=== PATIENT | female | born 1950 | race African-American/Black ===

== ENCOUNTER 2019-08-14 17:42 | Emergency (ER) | payer MEDICARE, OTHER ==
[~2019-08-14] VITALS: Ht 160 cm; Wt 56.2 kg
[2019-08-14 18:33] LABS: BILIRUBIN,URINE NEGATIVE (NEG); CLARITY,URINE CLEAR; COLOR,URINE ORANGE; NITRITE,URINE POSITIVE (NEG); PROTEIN,URINE NEGATIVE (NEG-TRACE)
--- NOTE | 2019-08-14 18:34 | PHYS DOC ---
Past Medical History Past Medical History: Arthritis, High Cholesterol, Hypertension Past Surgical History: Other Additional Past Surgical Histo: breast bx, rotator cuff Alcohol Use: None Drug Use: None Adult General Chief Complaint Chief Complaint: LOWER BACK PAIN OR INJURY [facility] HPI Patient is a 69 year old female presented to ER today for evaluation of left low back pain, left hip pain after she fell 3 days ago on a step. She denies any head or neck injury, no bowel or bladder incontinence. She denies any weakness or numbness in her lower extremity. She denies any urinary symptom. All other ROS is negative unless otherwise noted in HPI Review of Systems Review of Systems See above Allergies Allergies Allergies Coded Allergies Type Severity Reaction Last Updated Verified No Known Drug Allergies 01/18/16 No Physical Exam Physical Exam See above Constitutional: Well developed, well nourished, no acute distress, non-toxic appearance. [] HENT: Normocephalic, atraumatic, bilateral external ears normal, oropharynx moist, no oral exudates, nose normal. [] Eyes: PERRLA, EOMI, conjunctiva normal, no discharge. [] Neck: Normal range of motion, no tenderness, supple, no stridor. [] Cardiovascular:Heart rate regular rhythm, no murmur [] Lungs & Thorax: Bilateral breath sounds clear to auscultation [] Abdomen: Bowel sounds normal, soft, no tenderness, no masses, no pulsatile masses. [] Skin: Warm, dry, no erythema, no rash. [] Back: There is tenderness to palpation on left lower lumbar spine area, no midl ine vertebral tenderness to palpation, no bony step off, patient raise her left hip without any problem, pelvic is stable, no CVA tenderness. [] Extremities: No tenderness, no cyanosis, no clubbing, ROM intact, no edema. [] Neurologic: Alert and oriented X 3, normal motor function, normal sensory function, no focal deficits noted. [] Psychologic: Affect normal, judgement normal, mood normal. [] Current Patient Data Vital Signs Vital Signs Date Time Temp Pulse Resp B/P (MAP) Pulse Ox O2 Delivery O2 Flow Rate FiO2 08/14/19 18:15 98.1 98 18 153/77 (102) 100 Room Air 98.1 Lab Values Laboratory Tests Test 08/14/19 17:51 Urine Collection Type Unknown Urine Color [place] Urine Clarity Clear Urine pH 6.0 Urine Specific [place] 1.010 Urine Protein Negative mg/dL (NEG-TRACE) Urine Glucose (UA) Negative mg/dL (NEG) Urine Ketones (Stick) Negative mg/dL (NEG) Urine Blood Negative (NEG) Urine Nitrite Positive (NEG) Urine Bilirubin Negative (NEG) Urine Urobilinogen Dipstick 1.0 mg/dL (0.2 mg/dL) Urine Leukocyte Esterase Large (NEG) Urine RBC 0 /HPF (0-2) Urine WBC 20-40 /HPF (0-4) Urine Squamous Epithelial Cells Few /LPF Urine Transitional Epithelial Cells Few /LPF Urine Bacteria Few /HPF (0-FEW) Urine Hyaline Casts Few /HPF Urine Mucus Slight /LPF EKG EKG [] Radiology/Procedures Radiology/Procedures [][facility] [address] [place] [address] IMAGING REPORT Signed PATIENT: RAFAEL RODRIGUEZ JACCOUNT: [id number] : 1950 LOCATION: ER AGE: 69 SEX: F EXAM STATUS: REG ER ORD. PHYSICIAN: RICO SIMS DO REASON: lower back pain, left hip pain, fell 3 days ago PROCEDURE: LUMBAR SPINE 2-3V EXAM: 1. LUMBAR SPINE 2 VIEWS. 2. FRONTAL PELVIS WITH TWO-VIEW LEFT HIP. HISTORY: Low back pain and left hip pain. Fall. COMPARISON: None. FINDINGS: The alignment of the lumbar spine is maintained. Frontal projection is mildly rotated to the left. Vertebral body heights are maintained, and no fractures are identified. Intervertebral disc heights are maintained. No fractures are identified within the pelvis or either hip. The joint spaces and alignment of both hips are maintained. IMPRESSION: 1. No fracture or malalignment. Electronically signed by: Isabella Sofia MD (08/14/2019 7:51 PM) [facility] DICTATED and SIGNED BY: MICHAEL SOFIA MD DATE: 08/14/191950 Course & Med Decision Making Course & Med Decision Making Pertinent Labs and Imaging studies reviewed. (See chart for details) [] Dragon Disclaimer Dragon Disclaimer This electronic medical record was generated, in whole or in part, using a voice recognition dictation system. Departure Departure Impression: Primary Impression: UTI (urinary tract infection) Disposition: HOME, SELF-CARE Condition: STABLE Referrals: UNKNOWN PCP NAME (PCP) FOLLOW UP WITH YOUR DOCTOR ON FRIDAY FOR REEVALUATION Patient Instructions: Urinary Tract Infection Scripts Cephalexin (KEFLEX) 500 Mg Capsule 1 CAP PO TID for 7 Days, #21 CAP 0 Refills Prov: RICO SIMS DO 08/14/19 RICO SIMS DO Aug 14, 2019 18:34
[2019-08-14 18:48] LABS: HYALINE CASTS, URINE FEW /HPF; SQUAMOUS EPITHELIAL CELL,UR FEW /LPF
[2019-08-14 18:49] LABS: BACTERIA,URINE FEW /HPF (0-FEW); RBC,URINE 0 /HPF (0-2); WBC,URINE 20-40 /HPF (0-4)
--- NOTE | 2019-08-14 19:54 | RAD ---
EXAM: 1. LUMBAR SPINE 2 VIEWS. 2. FRONTAL PELVIS WITH TWO-VIEW LEFT HIP. HISTORY: Low back pain and left hip pain. Fall. COMPARISON: None. FINDINGS: The alignment of the lumbar spine is maintained. Frontal projection is mildly rotated to the left. Vertebral body heights are maintained, and no fractures are identified. Intervertebral disc heights are maintained. No fractures are identified within the pelvis or either hip. The joint spaces and alignment of both hips are maintained. IMPRESSION: 1. No fracture or malalignment. Electronically signed by: Isabella Sofia MD (08/14/2019 7:51 PM) [facility]
[2019-08-14] MEDS ORDERED: CEPH-264 PO (20:05)
[2019-08-14 21:08] VITALS: BP 111/55
== END 2019-08-14 20:34 | disposition home or self-care (01) ==
LOC: ER 17:42
DX: N39.0 Urinary tract infection, site not specified (principal); M25.552 Pain in left hip; E78.00 Pure hypercholesterolemia, unspecified; I10 Essential (primary) hypertension
CPT/HCPCS: 72100; 73502; 81001; 87086; 99285-25

== ENCOUNTER → 2019-12-30 | Outpatient (CLI) | payer OTHER ==
[~2019-12-30] MED LIST: CEPH-264 PO
--- NOTE | 2019-12-30 16:54 | RAD ---
EXAMINATION: Bilateral screening mammogram, 12/30/2019 8:00 AM CLINICAL INDICATION: 69-year-old woman presenting for screening mammogram. COMPARISON: None TECHNIQUE: Digital bilateral full-field CC and MLO views, and CC and MLO tomosynthesis views of the breasts were obtained. CAD was utilized. FINDINGS: The breasts contain scattered areas of fibroglandular density. There is no mass, suspicious calcification, or architectural distortion. IMPRESSION: 1. No mammographic evidence of malignancy. 2. BI-RADS 1: Negative. 3. Routine annual screening mammogram is recommended in 1 year. The patient will receive a reminder letter by mail when she is due for her next exam. Electronically signed by: Hanna Riggins MD (12/30/2019 4:50 PM) [email or web address]
== END | disposition home or self-care (01) ==
LOC: MAMMO 06:47
PROVIDERS: ATTEND Pediatrics
DX: Z12.31 Encounter for screening mammogram for malignant neoplasm of breast (principal)
CPT/HCPCS: 77063; 77067

== ENCOUNTER → 2021-01-10 | Outpatient (CLI) | payer OTHER ==
--- NOTE | 2021-01-12 08:05 | RAD ---
DATE: 01/10/2021 EXAM: MAMMO ELISE SCREENING BILATERAL HISTORY: Screening COMPARISON: 12/30/2019, 12/16/2018, 12/04/2027 This study was interpreted with the benefit of Computerized Aided Detection (CAD). Breast Density: SCATTERED The breast parenchyma shows scattered fibroglandular densities. Breast parenchyma level B. FINDINGS: No mass, suspicious calcification, or architectural distortion in either breast. IMPRESSION: No evidence of malignancy. BI-RADS CATEGORY: 1 NEGATIVE RECOMMENDED FOLLOW-UP: 12 M PQRS compliance statement: Patient information was entered into a reminder system with a target due date for the next mammogram. Mammography is a sensitive method for finding small breast cancers, but it does not detect them all and is not a substitute for careful clinical examination. A negative mammogram does not negate a clinically suspicious finding and should not result in delay in biopsying a clinically suspicious abnormality. "Our facility is accredited by the [employer] Mammography Program." [facility]
== END ==
LOC: MAMMO 11:11
PROVIDERS: ATTEND Pediatrics
DX: Z12.31 Encounter for screening mammogram for malignant neoplasm of breast (principal)
CPT/HCPCS: 77063; 77067